=== PATIENT | male | born 1930 | race American Indian/Alaskan Native ===

== ENCOUNTER 2017-09-06 19:14 | Inpatient (IN) | payer MEDICARE, OTHER ==
[2017-09-06 19:14] VITALS: BMI 22.3
--- NOTE | 2017-09-06 19:48 | ED PDOC ---
Arrival/HPI - General Chief Complaint: High Blood Sugar Time Seen by Provider: 09/06/17 19:44 Historian: Patient, Other (Girlfriend) - History of Present Illness Narrative History of Present Illness (Text): 09/06/17 19:48 pt p/w + weeks onset of not feeling well; pt states last week sustained URI like symptoms with persistent coughing, intermittently productive (greenish, non -bloody); pt states + generalized weakness/easily fatigued; no fever/chills/ sweats, no cp, + sob, decr appetite, no abd pain, no n/v, + urinary frequency, no bowel changes, no fall/trauma/travel; pt denied sick contact; pt was seen by Dr Carrillo yesterday, and had ordered labs for patient as well as CT to be done as outpt; pt states today received phone call from Dr Carrillo's office with abnl labs and was instructed to come to ED immediately; pt denied slurr speech, no vision changes, no focal weakness; pt is here for further eval pt's without other complaints. PCP: Lorena pt admits to being non-compliant with his medications Time/Duration: < month Symptom Onset: Gradual Symptom Course: Worsening Activities at Onset: Rest Context: Home Past Medical History - Provider Review Nursing Documentation Reviewed: Yes - Travel History Have you recently traveled outside [place] w/in the past 3 mons?: No - Past History Past History: No Previous - Infectious Disease Hx of Infectious Diseases: None - Cardiac Hx Cardiac Disorders: Yes Hx Hypertension: Yes Hx Pacemaker: No - Neurological Hx Neurological Disorder: No Hx Paralysis: No - HEENT Hx HEENT Disorder: No - Renal Hx Renal Disorder: No - Endocrine/Metabolic Hx Endocrine Disorders: Yes Hx Diabetes Mellitus Type 2: Yes - Hematological/Oncological Hx Blood Transfusions: No Hx Blood Transfusion Reaction: No - Musculoskeletal/Rheumatological Hx Musculoskeletal Disorders: No - Genitourinary/Gynecological Hx Genitourinary Disorders: No - Psychiatric Hx Psychophysiologic Disorder: No Hx Emotional Abuse: No Hx Physical Abuse: No Hx Substance Use: No - Anesthesia Hx Anesthesia: No Hx Anesthesia Reactions: No Hx Malignant Hyperthermia: No - Suicidal Assessment Feels Threatened In Home Enviroment: No Family/Social History - Physician Review Nursing Documentation Reviewed: Yes Family/Social History: No Known Family HX Smoking Status: Former Smoker Hx Alcohol Use: No Hx Substance Use: No Hx Substance Use Treatment: No Allergies/Home Meds Allergies/Adverse Reactions: Allergies No Known Allergies Allergy (Verified 09/06/17 19:34) Home Medications: Home Meds Medication Instructions Recorded Confirmed Unobtainable 09/06/17 09/06/17 Review of Systems - Review of Systems Constitutional: Fatigue, Weight Change Eyes: Normal ENT: Normal Respiratory: SOB, Cough, Sputum Cardiovascular: Normal Gastrointestinal: Normal Genitourinary Male: Frequency. absent: Dysuria Musculoskeletal: Normal Skin: Normal Neurological: Normal Endocrine: Normal Hemo/Lymphatic: Normal Psychiatric: Normal Physical Exam Vital Signs Reviewed: Yes Vital Signs Temp Pulse Resp BP Pulse Ox 09/06/17 19:48 98.8 F 91 H 18 138/88 96 Temperature: Afebrile Blood Pressure: Normal Pulse: Regular Respiratory Rate: Normal Appearance: Positive for: Well-Appearing, Other (mildly uncomfortable, alert/ awake, GCS = 15, oriented x 2 (not to date/time), cooperative, follows command with ease) Pain Distress: None Mental Status: Positive for: other (alert/awake, Oriented x 2 (not to date/time) ) Finger Stick Blood Glucose: 300 - Systems Exam Head: Present: Atraumatic, Normocephalic, Other (mild bi-temporal wasting) Pupils: Present: PERRL, Other (visual field intact b/l, no nystagmus, no photophobia, sclera anicteric) Extroacular Muscles: Present: EOMI Conjunctiva: Present: Normal Ears: Present: Normal Mouth: Present: Other (fair dentitions, mild dry oral mucosa, uvula/tongue are midline, no exudate/lesions, no dysphonia) Pharnyx: Present: Normal Nose (External): Present: Atraumatic Nose (Internal): Present: Normal Inspection Neck: Present: Normal Range of Motion, Trachea Midline. No: MIDLINE TENDERNESS Respiratory/Chest: Present: Clear to Auscultation, Good Air Exchange, Other ( CTA b/l, no w/r/r, no accessory muscle use noted, no tachypenia) Cardiovascular: Present: Regular Rate and Rhythm, Normal S1, S2. No: Murmurs Abdomen: Present: Normal Bowel Sounds, Other (well nourished male, no focal tenderness, no samuel's sign, no mcburney's point tenderness) Back: Present: Normal Inspection. No: CVA Tenderness, Midline Tenderness Upper Extremity: Present: Normal Inspection, Normal ROM, NORMAL PULSES, Neurovascularly Intact, Capillary Refill < 2s Lower Extremity: Present: Normal Inspection, NORMAL PULSES, Normal ROM, Temperature Abnormalties, Neurovascularly Intact, Capillary Refill < 2 s Neurological: Present: GCS=15, CN II-XII Intact, Speech Normal, Other (no facial asymmetries, no slurr speech, NIH stroke scale ~ 0) Skin: Present: Warm, Normal Color, Other (cap refill ~ 1 sec, no ulcerations, no petechiae, no rashes) Psychiatric: Present: Alert Medical Decision Making ED Course and Treatment: 09/06/171954 Impression: abnl labs, dehydration, URI like symptoms, elevated FS i have consider all the differential diagnosis regarding pt's chief medical complaints/clinical findings, including but are not limited to: abnl labs, elevated FS, uri like symptoms A/P: abnl labs, dehydration, elevated FS - labs - iv - xray - ct - observe - supportive care 09/06/17 20:08 Dr carrillo contacted, made aware, agrees with admission 09/06/17 22:02 pt is doing well currently pt is comfortable pt is made aware of his medical results agrees with admission Re-evaluation Time: 22:04 Reassessment Condition: Improving,but remains with symptoms - Critical Care Critical Care Minutes: 45 minutes Narrative Critical Care (Text): 09/06/17 22:05 critical care time: 45min, excluding procedure time, excluding time teaching residents/students/mid-level providers; including initial eval/diagnosis, diagnostic interpretation, re-eval, consultations, final disposition - Lab Interpretations Lab Results: 09/06/17 19:53 09/06/17 20:35 Lab Results 09/06/17 20:35: Triglycerides 206 H, Cholesterol Pending, LDL Cholesterol Direct 51, HDL Cholesterol 60 09/06/17 20:35: Sodium 136, Chloride 98, Potassium 5.4 H, Carbon Dioxide 28, Anion Gap 15, BUN 26 H, Creatinine 1.2, Est GFR ( Amer) > 60, Est GFR ( Non-Af Amer) 57, Random Glucose 364 H* D, Calcium 9.8, Total Bilirubin 0.5, AST 12 L, ALT 20, Alkaline Phosphatase 79, Troponin I < 0.01 D, Total Protein 6.4, Albumin 3.6, Globulin 2.8, Albumin/Globulin Ratio 1.3, Lipase 220 09/06/17 20:06: Urine Color Yellow, Urine Appearance Clear, Urine pH 5.5, Ur Specific [place] 1.010, Urine Protein Negative, Urine Glucose (UA) >=1000, Urine Ketones 15 H, Urine Blood Negative, Urine Nitrate Negative, Urine Bilirubin Negative, Urine Urobilinogen 0.2, Ur Leukocyte Esterase Negative 09/06/17 20:06: Urine Opiates Screen Negative, Urine Methadone Screen Negative, Ur Barbiturates Screen Negative, Ur Phencyclidine Scrn Negative, Ur Amphetamines Screen Negative, U Benzodiazepines Scrn Negative, U Oth Cocaine Metabols Negative, U Cannabinoids Screen Negative 09/06/17 19:53: Serum Osmolality 304 H 09/06/17 19:53: PT 10.6, INR 0.93, APTT 19.9 L 09/06/17 19:53: WBC 8.3 D, RBC 4.18, Hgb 13.2 L, Hct 38.3 L, MCV 91.6, MCH 31.6 , MCHC 34.5, RDW 13.1, Plt Count 197, MPV 10.7, Gran % 76.8 H, Lymph % (Auto) 15.1 L, Simpson % (Auto) 7.5 H, Eos % (Auto) 0.6 L, Baso % (Auto) 0.0, Gran # 6.35 , Lymph # (Auto) 1.3, Simpson # (Auto) 0.6, Eos # (Auto) 0.1, Baso # (Auto) 0.00 09/06/17 19:53: pO2 114 H, VBG pH 7.40, VBG pCO2 43.0, VBG HCO3 26.6, VBG Total CO2 27.9, VBG O2 Sat (Calc) 99.9 H, VBG Base Excess 1.5, VBG Potassium 5.2, Sodium 132.0, Chloride 98.0, Glucose 402 H*, Lactate 1.5, FiO2 21.0, Venous Blood Potassium 5.2 I have reviewed the lab results: Yes Interpretation: Abnormal lab values (elevated GLUC) - RAD Interpretation Narrative RAD Interpretations (Text): 09/06/17 22:02 cxr - NAD 02/20/18 22:03 CT head - pending Radiology Orders: 09/06/17 19:45 HEAD W/O CONTRAST [CT] Stat 09/06/17 19:46 CHEST PORTABLE [RAD] Stat [employer] Worker: ED Physician, Radiologist - EKG Interpretation EKG Interpretation (Text): 09/06/17 20:03 NSR at 90 bpm, normal axis, no ectopy, peaked T in leads V3-6, no st changes, voltage criteria LVH, ABNL EKG; unchanged compare with old ekg 12/2015 Interpreted by ED Physician: Yes Type: 12 lead EKG Comparison: Similar to previous EKG - Medication Orders Current Medication Orders: Albuterol/Ipratropium (Duoneb 3 Mg/0.5 Mg (3 Ml) Ud) 3 ml IH [id number] REILLY Glipizide (Glucotrol) 10 mg PO 0800,1700 REILLY Guaifenesin/Dextromethorphan (Robitussin Dm) 10 ml PO Q4H PRN PRN Reason: Cough Sodium Chloride (Sodium Chloride 0.9%) 1,000 mls @ 100 mls/hr IV .Q10H REILLY Insulin Detemir (Levemir) 10 unit SC HS REILLY Insulin Human Lispro (Humalog Med) 0 units SC ACHS REILLY PRN Reason: Protocol Metformin HCl (Glucophage) 500 mg PO 0800,1700 REILLY Pantoprazole Sodium (Protonix Ec Tab) 40 mg PO 0630 REILLY Discontinued Medications Sodium Chloride (Sodium Chloride 0.9%) 500 mls @ 999 mls/hr IV .Q31M STA Stop: 09/06/17 21:48 Last Admin: 09/06/17 21:30 Dose: 999 mls/hr eMAR Start Stop Document 09/06/17 21:30 CNR (Rec: 09/06/17 21:30 CNR [id number]) Intravenous Solution Start Date 09/06/17 Start Time 21:30 Insulin Human Regular (Humulin R) 8 units SC ONCE ONE Stop: 09/06/17 21:19 Last Admin: 09/06/17 21:30 Dose: 8 units Subcutaneous Administrations Document 09/06/17 21:30 CNR (Rec: 09/06/17 21:30 CNR [id number]) Injection Site MAR Injection Site Right Abdomen Charges for Administration # of Subcutaneous Administrations 1 Disposition/Present on Arrival - Present on Arrival Any Indicators Present on Arrival: No History of DVT/PE: No History of Uncontrolled Diabetes: No Urinary Catheter: No History of Decub. Ulcer: No History Surgical Site Infection Following: None - Disposition Have Diagnosis and Disposition been Completed?: Yes Diagnosis: Altered mental status, unspecified, Dehydration, Uncontrolled diabetes mellitus , Weakness Disposition: HOSPITALIZED Disposition Time: 21:30 Patient Plan: Admission Condition: STABLE
[2017-09-06 20:16] LABS: VENOUS BLOOD GAS BASE EXCESS 1.5 mmol/L (0.0-2.0); VENOUS BLOOD GAS PO2 114 mm/Hg (30-55)
[2017-09-06 20:29] LABS: EOS # 0.1 (0.0-0.7); EOS % 0.6 % (1.5-5.0); GRAN # 6.35 (1.4-6.5); GRAN % 76.8 % (50.0-68.0); HEMOGLOBIN 13.2 g/dL (14.0-18.0); LYMPH # 1.3 (1.2-3.4); LYMPH % 15.1 % (22.0-35.0); MEAN CELL VOLUME 91.6 fl (80.0-105.0); MEAN CORPUSCULAR HEMOGLOBIN 31.6 pg (25.0-35.0); MEAN CORPUSCULAR HGB CONC 34.5 g/dl (31.0-37.0); MEAN PLATELET VOLUME 10.7 fl (7.0-11.0); MONO # 0.6 (0.1-0.6); MONO % 7.5 % (1.0-6.0); RBC 4.18 10^6/uL (3.5-6.1); RED CELL DISTRIBUTION WIDTH 13.1 % (11.5-14.5); WHITE BLOOD COUNT 8.3 10^3/ul (4.5-11.0)
[2017-09-06 20:43] LABS: INR 0.93 (0.93-1.08); PARTIAL THROMBOPLASTIN TIME 19.9 Seconds (25.1-36.5); PROTHROMBIN TIME 10.6 SECONDS (9.4-12.5)
[2017-09-06 20:50] LABS: BARBITURATES, UR NEGATIVE (NEGATIVE); BENZODIAZEPINES, UR NEGATIVE (NEGATIVE); OPIATES, UR NEGATIVE (NEGATIVE); PHENCYCLIDINE, UR NEGATIVE (NEGATIVE)
[2017-09-06 20:58] LABS: PH,URINE 5.5 (4.7-8.0); URINE BILIRUBIN NEGATIVE (NEGATIVE); URINE BLOOD NEGATIVE (NEGATIVE); URINE GLUCOSE (UA) >=1000 mg/dL (NEGATIVE); URINE LEUKOCYTE ESTERASE NEGATIVE Leu/uL (NEGATIVE); URINE NITRATE NEGATIVE (NEGATIVE); URINE PROTEIN NEGATIVE mg/dL (<30 mg/dL); URINE UROBILINOGEN 0.2 E.U./dL (<1 E.U./dL)
[2017-09-06 21:04] LABS: URINE APPEARANCE CLEAR (CLEAR); URINE COLOR YELLOW (YELLOW)
[2017-09-06 21:17] LABS: ALB/GLOB RATIO 1.3 (1.1-1.8); ALBUMIN 3.6 g/dL (3.0-4.8); ALT/SGPT 20 U/L (7-56); AST/SGOT 12 U/L (17-59); BLOOD UREA NITROGEN 26 mg/dL (7-21); CALCIUM 9.8 mg/dL (8.4-10.5); GFR AFRICAN-AMERICAN > 60; GFR NON-AFRICAN AMERICAN 57; LIPASE 220 U/L (23-300)
[2017-09-06 21:18] LABS: TROPONIN I < 0.01 ng/mL
[2017-09-06] MEDS ORDERED: Insulin Regular 1 UNITS/0.01 ML ML SC ONE (21:18)
[2017-09-06] MEDS ORDERED: Sodium Chloride 0.9% 500 ML IV STA (21:18)
[2017-09-06] MEDS ORDERED: guaiFENesin DM 200 mg-20 mg/10 ml UD PO PRN (21:31)
[2017-09-06 21:48] LABS: HDL CHOLESTEROL 60 mg/dL (29-60)
[2017-09-06 21:59] LABS: LDL CHOLESTEROL 51 mg/dL (0-129)
[2017-09-06] MEDS ORDERED: Insulin Lispro 1 UNITS/0.01 ML ONE (22:08)
[2017-09-06] MEDS: Insulin Detemir 100 units/ml Vial (Levemir) SC SCH (22:17)
[2017-09-06] MEDS: Insulin Lispro (humaLOG) MEDIUM Coverage SC SCH (22:18)
[2017-09-06] MEDS: Sodium Chloride 0.9% 1,000 ML IV SCH (22:48)
--- NOTE | 2017-09-06 23:54 | CT ---
EXAM: CT Head Without Intravenous Contrast EXAM DATE/TIME: 09/06/2017 7:45 PM CLINICAL HISTORY: The patient age is 87 years old and is male; Pain; Headache; Headache not specified; Additional info: AMS, weakness Facility exam id and description: Ct heads head w/o contrast TECHNIQUE: Axial computed tomography images of the head/brain without intravenous contrast. All CT scans at this facility use one or more dose reduction techniques, viz.: automated exposure control; ma/kV adjustment per patient size (including targeted exams where dose is matched to indication; i.e. head); or iterative reconstruction technique. Coronal and sagittal reformatted images were created and reviewed. COMPARISON: No relevant prior studies available. FINDINGS: Brain: There is a hypodense lacunar infarct within the right basal ganglia, which is likely acute or subacute. Otherwise, there is no acute territorial type infarct. There are periventricular foci of hypodensity, likely representing small vessel ischemic disease in a patient this age. The acuity of the white matter disease is indeterminate. The white-noonan differentiation is otherwise preserved demonstrating no acute territorial type infarct. There is moderate prominence of the ventricles and sulci, compatible with atrophy. No acute intracranial hemorrhage is seen. Midline shift: There is no midline shift. Ventricles: See above. Bones/joints: The calvarium demonstrates no evidence for a depressed fracture. Soft tissues: No acute abnormality. Vasculature: There is atherosclerotic calcification of the cavernous internal carotid arteries. Sinuses: Unremarkable as visualized. No acute sinusitis. Mastoid air cells: No mastoid effusion. IMPRESSION: 1. There is a hypodense lacunar infarct within the right basal ganglia, which is likely acute or subacute. Otherwise, there is no acute territorial type infarct. If further evaluation is clinically indicated, an MRI of the brain is recommended. 2. No acute intracranial hemorrhage. 3. There are periventricular foci of hypodensity, likely representing small vessel ischemic disease in a patient this age. 4. Moderate atrophy.
--- NOTE | 2017-09-07 00:29 | CT ---
EXAM: CT Chest Without Intravenous Contrast EXAM DATE/TIME: 09/06/2017 9:25 PM CLINICAL HISTORY: The patient age is 87 years old and is male; Pain; Chest pain; Type not specified; Additional info: Persistant cough Facility exam id and description: Ct chests chest w/o contrast TECHNIQUE: Axial computed tomography images of the chest without intravenous contrast. All CT scans at this facility use one or more dose reduction techniques, viz.: automated exposure control; ma/kV adjustment per patient size (including targeted exams where dose is matched to indication; i.e. head); or iterative reconstruction technique. Coronal and sagittal reformatted images were created and reviewed. COMPARISON: DX - CHEST PORTABLE 2017-09-06 19:52 FINDINGS: Lungs: There is patchy nodular consolidation of the left lower lobe. At the posterior right lung base, there is a 2.2 x 1.4 cm nodular consolidation. This may be infectious, although malignancy is also in the differential. Dependent groundglass densities identified within both lower lobes. Pleural space: No pneumothorax. No significant effusion. Heart: A small amount of fluid is seen in the superior pericardial recess. No cardiomegaly. Thyroid: There is heterogeneous density of the thyroid gland. Bones/joints: Hypertrophic degenerative changes are noted within the spine. 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 The ascending aorta measures 4.4 cm in diameter. The descending thoracic aorta measures 3.2 cm in diameter. Mild atherosclerotic changes are visualized. Lymph nodes: No significant mediastinal lymphadenopathy. Evaluation of hilar lymphadenopathy is limited by the absence of intravenous contrast. Liver: A tiny calcification is visualized within the liver. Gallbladder and bile ducts: There is increased density in the region of the neck of the gallbladder, consistent with sludge or gallstone. Kidneys and ureters: There is nonspecific left perinephric stranding. IMPRESSION: 1. There is patchy nodular consolidation of the left lower lobe. This may be infectious, although malignancy is also in the differential. Clinical correlation, a follow-up CT in one month, and possible PET/CT are recommended. 2. There is aneurysmal dilatation of the thoracic aorta. 3. There is increased density in the region of the neck of the gallbladder, consistent with sludge or gallstone. 4. Incidental/non-acute findings are described above.
[2017-09-07] MEDS: Albuterol-Ipratrop 3 mg / 0.5 (3 ml) UD IH SCH ×4 (01:42→19:47)
[2017-09-07 04:33] VITALS: RESP 20
[2017-09-07] MEDS: Pantoprazole 40 mg EC Tab PO SCH (05:35)
[2017-09-07 06:38] LABS: ALB/GLOB RATIO 1.1 (1.1-1.8); ALBUMIN 3.5 g/dL (3.0-4.8); ALT/SGPT 13 U/L (7-56); AST/SGOT 14 U/L (17-59); BLOOD UREA NITROGEN 20 mg/dL (7-21); CALCIUM 9.3 mg/dL (8.4-10.5); GFR AFRICAN-AMERICAN > 60; GFR NON-AFRICAN AMERICAN > 60
--- NOTE | 2017-09-07 06:45 | HP ---
HISTORY OF PRESENT ILLNESS: The patient is an 87-year-old who was seen in office day before yesterday, brought in by that he has been confused, disoriented, has been hallucinating. He was talking about some lady who is being cut up, but is still alive. He also was looking for things that were not existent there around him and also, he was urinating on himself and was also confused and disoriented. PAST MEDICAL HISTORY: He has significant past medical history of hypertension, [id number] diabetes, hyperlipidemia. ALLERGIES: HE IS NOT ALLERGIC TO ANY MEDICATION. MEDICATIONS AT HOME: He is on glipizide 10 mg twice a day, metformin 500 twice a day, Percocet as needed and he is on multivitamin. SOCIAL HISTORY: He used to be heavy smoker. 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 He is . Lives with his second . REVIEW OF SYSTEMS: Significant for persistent cough, losing weight and having incontinence of urine. PHYSICAL EXAMINATION GENERAL: He is awake, alert, and forgetful. VITAL SIGNS: Afebrile, pulse 91, respiration 18, blood pressure 130/88. LUNGS: Bilateral fair air flow. No rhonchi or crackles. HEART: S1, S2, audible. ABDOMEN: Soft, nontender. No rebound, no guarding. NEUROLOGICAL: He is awake and alert, somewhat confused and disoriented. LABORATORY DATA: WBC 8.3, hemoglobin 13.2, hematocrit 38.3, platelets 197,000. PT 10.6, INR 0.93. Chemistry: Sodium is 136, potassium 5.4, chloride 98, CO2 28, BUN 26, creatinine 1.2, blood sugar of 364, AST 12, troponin 0.01. Urinalysis show ketones. Urine drug screen is negative. X-ray of the chest is unremarkable. ASSESSMENT AND PLAN 1. Uncontrolled diabetes. 2. Weight loss, secondary to uncontrolled diabetes. 3. Hypertension. 4. Hyperlipidemia. 5. Altered mental status secondary to hyperglycemia. So, the plan is we will start the patient on IV fluids. He is on normal saline 800 mL. We will monitor his blood sugar. Start him on glipizide and metformin and give him 10 units of Levemir tonight. Babar Carrillo MD
[2017-09-07 07:22] LABS: FREE T4 1.43 ng/dL (0.78-2.19)
[2017-09-07] MEDS: Insulin Lispro (humaLOG) MEDIUM Coverage SC SCH ×4 (07:29→22:43)
--- NOTE | 2017-09-07 09:19 | RAD ---
HISTORY: AMS, weakness COMPARISON: 01/06/2016 FINDINGS: LUNGS: No active pulmonary disease. PLEURA: No significant pleural effusion identified, no pneumothorax apparent. CARDIOVASCULAR: Normal. OSSEOUS STRUCTURES: No significant abnormalities. VISUALIZED UPPER ABDOMEN: Normal. OTHER FINDINGS: Mild aortic tortuosity IMPRESSION: No active disease.
[2017-09-07] MEDS: Sodium Chloride 0.9% 1,000 ML IV SCH (11:24)
[2017-09-07] MEDS: cefTRIAXone 1 gm 1 GM/100 ML BAG IVPB SCH (12:19)
--- NOTE | 2017-09-07 14:58 | PN ---
DATE: SUBJECTIVE: Patient is an 87-year-old male seen and examined. He states he feels a lot better. Denies any nausea or vomiting. Cough seems to be doing better. He seems to be more awake and alert. PHYSICAL EXAMINATION VITAL SIGNS: He is afebrile. Pulse 82, respiration 20, blood pressure 143/89. LUNGS: Bilateral fair air flow. No rhonchi or crackles. HEART: S1, S2, audible. ABDOMEN: Soft, nontender. No rebound. No guarding. NEUROLOGIC: He is awake, alert and oriented, communicative. No focal deficit. No motor or sensory deficit in upper or lower extremities. LABORATORY DATA: WBC 8.3, hemoglobin 13, hematocrit 38, platelets of 197. Chemistry: Sodium 141, potassium 4.5, chloride 104, CO2 28, BUN 20, creatinine 1.1, blood sugar of 302. Patient had a carotid Doppler done in and had CT scan of the chest that shows there is a patchy nodular consolidation of the left upper lobe. This maybe infectious. All the malignancies are also at differential. There is aneurysmal dilatation of thoracic aorta. There is increased density in the region of neck of gallbladder consistent with sludge or gallstone. CT scan of the brain shows there is hyperdense lacunar infarct within the right basal ganglia, which is likely acute or subacute. There is no acute territorial type infarct. ASSESSMENT: 1. Uncontrolled hypertension. 2. Lacunar infarct. 3. Non-insulin dependent diabetes. 4. Hypertension. 5. Hyperlipidemia. 6. Left upper lung nodule, infectious versus malignancy. PLAN: Patient has been started on aspirin. We will start him on nebulizer treatment. He has been started on metformin and glipizide and monitor his blood sugar. Continue him on statin and Protonix. Continue him on IV fluid. I will start him on Rocephin and Zithromax. Diabetic education has been requested. Babar Carrillo MD
--- NOTE | 2017-09-07 19:56 | US ---
PROCEDURE: Bilateral carotid artery duplex ultrasound HISTORY: Carotid stenosis syncope PHYSICIAN(S): Chaz Terry MD. TECHNIQUE: Duplex sonography and color-flow Doppler were used to evaluate the carotid bifurcations and limited segments of the vertebral arteries bilaterally. FINDINGS: There is mild smooth heterogeneous plaque noted at the carotid bifurcations bilaterally. The peak systolic velocity in the proximal right internal carotid artery is 49 cm/sec. This corresponds to a 20 to 39% proximal right ICA stenosis. Normal systolic velocities are noted in the proximal right external carotid artery. There is antegrade flow in the right vertebral artery. The peak systolic velocity in the proximal left internal carotid artery is 52 cm/sec. This corresponds to a 20 to 39% proximal left ICA stenosis. Normal systolic velocities are noted in the proximal left external carotid artery. There is antegrade flow in the dominant left vertebral artery. IMPRESSION: 1. Bilateral 20-39% proximal ICA stenoses. 2. Antegrade flow in both vertebral arteries.
--- NOTE | 2017-09-07 22:15 | CARD ---
APPROVED REPORT EKG Measurement Heart [id number] <Conclusion> Normal sinus rhythm Normal ECG
[2017-09-07] MEDS: Insulin Detemir 100 units/ml Vial (Levemir) SC SCH (22:44)
[2017-09-08] MEDS: Albuterol-Ipratrop 3 mg / 0.5 (3 ml) UD IH SCH ×3 (01:28→13:37)
[2017-09-08] MEDS: Sodium Chloride 0.9% 1,000 ML IV SCH (05:55)
[2017-09-08] MEDS: Pantoprazole 40 mg EC Tab PO SCH (06:10)
[2017-09-08 06:24] VITALS: O2SAT 98
[2017-09-08] MEDS: Insulin Lispro (humaLOG) MEDIUM Coverage SC SCH ×2 (08:20→12:02)
[2017-09-08] MEDS: cefTRIAXone 1 gm 1 GM/100 ML BAG IVPB SCH (09:43)
[2017-09-08 09:49] LABS: ALB/GLOB RATIO 1.1 (1.1-1.8); ALBUMIN 3.2 g/dL (3.0-4.8); ALT/SGPT 16 U/L (7-56); AST/SGOT 13 U/L (17-59); BLOOD UREA NITROGEN 11 mg/dL (7-21); CALCIUM 9.2 mg/dL (8.4-10.5); GFR AFRICAN-AMERICAN > 60; GFR NON-AFRICAN AMERICAN > 60
[2017-09-08 11:40] VITALS: BP 126/83; PULSE 80; TEMP 98.5
--- NOTE | 2017-09-09 02:19 | DS ---
HISTORY OF PRESENT ILLNESS: The patient is an 87-year-old who was admitted because of altered mental status. He was found to have blood sugar of 648 in the office, so he was referred to emergency room. The patient was also having some cough and congestion, so he was given antibiotic as outpatient, doing better now, wants to go home. PHYSICAL EXAMINATION: VITAL SIGNS: The patient is afebrile, pulse 80, respiration 20, blood pressure 126/83. LUNGS: Bilateral good air flow. No rhonchi or crackle. HEART: S1, S2 audible. ABDOMEN: Soft, nontender. No rebound, no guarding. NEUROLOGIC: The patient is awake, alert, oriented, communicative. LABORATORY DATA: Sodium 137, potassium 4.5, chloride 103, CO2 of 27, BUN 11, creatinine 1.0. Blood sugar of 298. Carotid Doppler was unremarkable. CT scan of the chest was done that shows patchy nodular consolidation in the left upper lobe, may be infectious, although malignancy also is a differential. CT scan of the brain shows lacunar infarcts within the right basal ganglia. ASSESSMENT AND PLAN: 1. Right basal ganglia infarct. 2. Altered mental status secondary to hyperglycemia. 3. Hypertension. 4. Hyperlipidemia. 5. Won-fvfvqbo-gwuzhhzqd diabetes. The patient has been noncompliant. He is advised to be compliant. He will be discharged home on p.o. Vantin and Zithromax for 1 week, and he is advised to take his medication regularly, and he will follow up in the office in a week or two. Babar Carrillo MD
[2017-09-12 18:25] LABS: BETA-HYDROXYBUTYRIC ACID 180 mcg/mL
== END 2017-09-08 15:56 | disposition home or self-care (01) | DRG 637 ==
LOC: ED 19:14 → ERH 21:19 → 2RNO 22:55
PROVIDERS: ADMIT Internal Medicine; ATTEND Internal Medicine
PROC: 3E0F7GC Introduction of Other Therapeutic Substance into Respiratory Tract, Via Natural or Artificial Opening (ICD-10-PCS; principal; 2017-09-07)
DX: E11.65 Type 2 diabetes mellitus with hyperglycemia (principal); I63.9 Cerebral infarction, unspecified; R41.82 Altered mental status, unspecified; E86.0 Dehydration; E78.5 Hyperlipidemia, unspecified; I10 Essential (primary) hypertension; Z79.84 Long term (current) use of oral hypoglycemic drugs; Z91.19 Patient's noncompliance with other medical treatment and regimen; Z87.891 Personal history of nicotine dependence